=== PATIENT | male | born 1970 | race Caucasian/White ===

== ENCOUNTER 2023-07-15 11:12 | Emergency (ER) | payer BC ==
[~2023-07-15] VITALS: Ht 177.8 cm; Wt 110.0 kg
[2023-07-15] MEDS ORDERED: methylPREDNISolone sod succ 125mg/2ml vial IV ONE (16:55)
[2023-07-15] MEDS ORDERED: ketorolac trometh inj. 60 MG/2 ML VIAL IM ONE (16:55)
[2023-07-15] MEDS ORDERED: NAPR-56 PO (17:01)
[2023-07-15] MEDS ORDERED: METH4TAB81 PO (17:01)
[2023-07-15 17:27] VITALS: BP 118/86; PULSE 66; TEMP 97.5; O2SAT 95
[2023-07-15 17:40] VITALS: RESP 16
== END 2023-07-15 18:06 | disposition home or self-care (01) ==
LOC: ER 11:13
DX: S46.211A Strain of muscle, fascia and tendon of other parts of biceps, right arm, initial encounter (principal); X58.XXXA Exposure to other specified factors, initial encounter; Y93.89 Activity, other specified; Y92.89 Other specified places as the place of occurrence of the external cause; Y99.8 Other external cause status
CPT/HCPCS: 73060; 96372; 96374; 99284; J1885; J2930